=== PATIENT | male | born 1940 | race Two or more races ===

== ENCOUNTER 2024-01-30 13:00 | Outpatient (RCR) | payer MEDICARE, SELFPAY | END 2024-01-30 23:59 | disposition home or self-care (01) | LOC: PURB 13:00 | PROVIDERS: ATTENDING PHYSICIAN Internal Medicine Critical Care Medicine; PRIMARYCARE PHYSICIAN Internal Medicine | DX: C45.0 Mesothelioma of pleura (principal); R06.09 Other forms of dyspnea | CPT/HCPCS: G0237 ==

== ENCOUNTER 2024-02-25 13:15 | Outpatient (RCR) | payer MEDICARE, SELFPAY | END 2024-02-29 23:59 | disposition home or self-care (01) | LOC: PURB 13:15 | PROVIDERS: ATTENDING PHYSICIAN Internal Medicine Critical Care Medicine; PRIMARYCARE PHYSICIAN Internal Medicine | DX: C45.0 Mesothelioma of pleura (principal); J10.1 Influenza due to other identified influenza virus with other respiratory manifestations | CPT/HCPCS: G0239 ==

== ENCOUNTER 2024-03-19 13:15 | Outpatient (RCR) | payer MEDICARE, SELFPAY | END 2024-03-19 23:59 | disposition home or self-care (01) | LOC: PURB 13:15 | PROVIDERS: ATTENDING PHYSICIAN Internal Medicine Critical Care Medicine; PRIMARYCARE PHYSICIAN Internal Medicine | DX: C45.0 Mesothelioma of pleura (principal); R06.09 Other forms of dyspnea | CPT/HCPCS: G0239 ==

== ENCOUNTER 2024-04-28 13:15 | Outpatient (RCR) | payer MEDICARE, SELFPAY | END 2024-05-01 11:32 | disposition home or self-care (01) | LOC: PURB 13:15 | PROVIDERS: ATTENDING PHYSICIAN Internal Medicine Critical Care Medicine; PRIMARYCARE PHYSICIAN Internal Medicine | DX: C45.0 Mesothelioma of pleura (principal) | CPT/HCPCS: G0239 ==

== ENCOUNTER 2024-05-05 13:15 | Outpatient (RCR) | payer MEDICARE, SELFPAY | END 2024-05-06 09:43 | disposition home or self-care (01) | LOC: PURB 13:15 | PROVIDERS: ATTENDING PHYSICIAN Internal Medicine Critical Care Medicine; PRIMARYCARE PHYSICIAN Internal Medicine | DX: C45.0 Mesothelioma of pleura (principal) | CPT/HCPCS: G0239 ==

== ENCOUNTER 2024-09-24 09:30 | Outpatient (RCR) | payer OTHER, SELFPAY | END 2024-09-28 09:40 | disposition home or self-care (01) | LOC: PURB 09:30 | PROVIDERS: ATTENDING PHYSICIAN Internal Medicine Critical Care Medicine | DX: C45.0 Mesothelioma of pleura (principal); J70.1 Chronic and other pulmonary manifestations due to radiation; R06.09 Other forms of dyspnea | CPT/HCPCS: G0237; G0239 ==

== ENCOUNTER 2024-10-29 09:30 | Outpatient (RCR) | payer OTHER, SELFPAY | END 2024-10-29 23:59 | disposition home or self-care (01) | LOC: PURB 09:30 | PROVIDERS: ATTENDING PHYSICIAN Internal Medicine Critical Care Medicine | DX: C45.0 Mesothelioma of pleura (principal); J70.1 Chronic and other pulmonary manifestations due to radiation; R06.09 Other forms of dyspnea | CPT/HCPCS: G0239 ==

== ENCOUNTER 2024-11-24 09:30 | Outpatient (RCR) | payer OTHER, SELFPAY | END 2024-11-26 08:25 | disposition home or self-care (01) | LOC: PURB 09:30 | PROVIDERS: ATTENDING PHYSICIAN Internal Medicine Critical Care Medicine | DX: C45.0 Mesothelioma of pleura (principal); J70.1 Chronic and other pulmonary manifestations due to radiation; R06.09 Other forms of dyspnea | CPT/HCPCS: G0239 ==